=== PATIENT | female | born 1945 | race Caucasian/White ===

== ENCOUNTER 2023-12-08 07:29 | Inpatient (IN) ==
[2023-12-08] MEDS ORDERED: Senna TAB 8.6 mg TAB PO PRN (12:18)
[2023-12-08] MEDS: Heparin 5000 UNITS/ML 1 mL VIAL SUBCUT SCH (15:33)
[2023-12-09] MEDS: Aspirin EC 81 mg TAB.EC (enteric coated) PO SCH (08:48)
[2023-12-11 06:38] LABS: Albumin 3.1 g/dL (3.2-5.2); Albumin/Globulin Ratio 1.4 (1-3); Creatinine, Serum 1.7 mg/dL (0.51-0.95); Globulin 2.2 g/dL (2-4); Potassium 4.2 mmol/L (3.5-5.0); Total Bilirubin 0.5 mg/dL (0.2-1.0); Total Protein 5.3 g/dL (6.4-8.9); eGFR CKD-EPI 30.3 (>60)
[2023-12-11 06:54] LABS: ABS Eosinophils 0.1 10^3/uL (0.0-0.5); ABS Lymphocytes 1.1 10^3/uL (1.0-4.8); ABS Monocytes 0.7 10^3/uL (0.0-0.9); ABS Neutrophils 6.5 10^3/uL (1.5-7.6); Eosinophil % 1.2 %; Hematocrit 34.3 % (35-45); Hemoglobin 11.5 g/dL (11.5-14.3); Lymphocyte % 12.9 %; Mean Corpuscular Hgb Conc 33.4 g/dL (31-36); Mean Corpuscular Volume 86.9 fL (80-97); Mean Platelet Volume 10.8 fL (7.5-11.2); Platelet Count 188 10^3/uL (150-450); Red Blood Count 3.95 10^6/uL (3.63-4.92); Red Cell Distribution Width 13.5 % (12-17); White Blood Count 8.3 10^3/uL (3.8-11.8)
[2023-12-15] MEDS: Psyllium PAK PO SCH (09:10)
[2023-12-16] MEDS: Heparin 5000 UNITS/ML 1 mL VIAL SUBCUT SCH (21:29)
[2023-12-18 06:39] LABS: ABS Basophils 0.1 10^3/uL (0.0-0.1); ABS Eosinophils 0.2 10^3/uL (0.0-0.5); ABS Lymphocytes 1.2 10^3/uL (1.0-4.8); ABS Monocytes 0.5 10^3/uL (0.0-0.9); ABS Neutrophils 4.8 10^3/uL (1.5-7.6); Eosinophil % 2.3 %; Hematocrit 36.8 % (35-45); Hemoglobin 11.9 g/dL (11.5-14.3); Lymphocyte % 18.1 %; Mean Corpuscular Hemoglobin 28.1 pg (27-33); Mean Corpuscular Hgb Conc 32.3 g/dL (31-36); Mean Platelet Volume 11.1 fL (7.5-11.2); Platelet Count 191 10^3/uL (150-450); Red Blood Count 4.23 10^6/uL (3.63-4.92); Red Cell Distribution Width 14.1 % (12-17); White Blood Count 6.7 10^3/uL (3.8-11.8)
[2023-12-18 06:57] LABS: Albumin 3.4 g/dL (3.2-5.2); Albumin/Globulin Ratio 1.5 (1-3); Calcium 9.5 mg/dL (8.6-10.3); Creatinine, Serum 1.45 mg/dL (0.51-0.95); Globulin 2.3 g/dL (2-4); Potassium 4.1 mmol/L (3.5-5.0); Total Bilirubin 0.4 mg/dL (0.2-1.0); Total Protein 5.7 g/dL (6.4-8.9); eGFR CKD-EPI 36.7 (>60)
[2023-12-18] MEDS ORDERED: Calcium Carb (TUMS) 500 mg CHEW TAB PO PRN (21:08)
[2023-12-19] MEDS: Psyllium PAK PO SCH (10:06)
[2023-12-19] MEDS: Ondansetron ODT 4 mg TAB 4 MG TAB PO PRN (21:05)
[2023-12-20 08:33] LABS: Calcium 9.6 mg/dL (8.6-10.3); Creatinine, Serum 1.66 mg/dL (0.51-0.95); Potassium 4.1 mmol/L (3.5-5.0); eGFR CKD-EPI 31.2 (>60)
[2023-12-20 14:00] VITALS: BP 113/63
== END 2023-12-20 19:04 | disposition other institution (70) | DRG 56 ==
LOC: PMRU 09:49
PROVIDERS: ADMIT Physical Medicine & Rehabilitation; ATTEND Physical Medicine & Rehabilitation